=== PATIENT | female | born 1970 | race Caucasian/White ===

== ENCOUNTER 2018-06-22 15:27 | Emergency (ER) | payer BC, SELFPAY ==
[2018-06-22 15:57] VITALS: BP 161/92; PULSE 69; RESP 18; TEMP 37; O2SAT 98
[2018-06-22 16:42] LABS: Add Manual Diff / Slide Review NO; Basophils Percent Auto 0.8 % (0-2); Eosinophils Percent Auto 0.8 % (2-4); Hematocrit 32.5 % (36-46); Hemoglobin 10.4 g/dL (12.0-16.0); Mean Corpuscular HGB Conc 31.9 % (30-36); Mean Corpuscular Volume 84.6 fL (80-100); Monocytes Percent Auto 7.5 % (3-14); Neutrophils Absolute Auto 5000 /uL (3000-5900); Neutrophils Percent Auto 63.9 % (50-75); Platelet Count 239 X10^3/uL (150-400); Red Blood Cell Count 3.84 X10^6/uL (4.0-5.2); Red Cell Distribution Width 15.5 % (11.6-14.8); White Blood Cell Count 7.9 X10^3/uL (4.5-11.0)
[2018-06-22 16:54] LABS: Prothrombin Time 10.9 SECONDS (10.1-12.7)
[2018-06-22 16:56] LABS: PTT Partial Thromboplastin Tim 30 SECONDS (26.4-36.2)
[2018-06-22 16:58] LABS: Alanine Aminotransferase 25 IU/L (9-52); Albumin 4.2 g/dL (3.5-5.0); Albumin Globulin Ratio 1.4 (1.0-2.8); Alkaline Phosphatase 61 U/L (38-126); Aspartate Aminotransferase 23 IU/L (14-36); Bilirubin Total 0.2 mg/dL (0.2-1.3); Blood Urea Nitrogen 14 mg/dL (7-17); Calcium 8.6 mg/dL (8.4-10.2); Carbon Dioxide 29 mmol/L (22-32); Chloride 104 mmol/L (98-107); Creatine Kinase 55 U/L (30-135); Estimated Glomerular Filt Rate > 60.0 mL/min (>60); Glucose 90 mg/dL (70-100); HEMOLYSIS < 15 (0-50); Lipase 165 U/L (23-300); Potassium 4.6 mmol/L (3.4-5.1); Sodium 140 mmol/L (137-145); Total Protein 7.2 g/dL (6.3-8.2)
[2018-06-22 17:10] LABS: Troponin I < 0.012 ng/mL (0.01-0.034)
[2018-06-22 17:29] LABS: TSH w/ Reflex to FT4 0.95 uIU/mL (0.47-4.68)
[2018-06-22 18:45] VITALS: BP 136/82; PULSE 74; RESP 22; O2SAT 100
--- NOTE | 2018-06-22 18:58 | ED_ITS ---
HPI - Chest Pain General Chief Complaint: Chest Pain Stated Complaint: medication changes,elevated BP,headaches Time Seen by Provider: 06/22/18 18:14 Source: patient Mode of arrival: ambulatory Limitations: no limitations History of Present Illness HPI narrative: patient is a 48-year-old female who presents with a variety of complaints. 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 She has been on levothyroxine for number of years. He her TSH 3 weeks ago was 7.0, her dose was increased from 112 mcg to 125 mcg. 2 days later she started feeling palpitations has had a headache her blood pressures been all over the place. She overall does not feel well. She was decreased back to 112 4 days ago. She still does not feel quite right. continues to have headache. No nausea or vomiting weakness or blurry vision. His she has some discomfort in his chest no shortness of breath or fevers. She denies any hair loss weight loss shaking, dizziness lightheadedness. Review of Systems Review of Systems All systems reviewed & are unremarkable except as noted in HPI and below Constitutional Denies chills, Denies fever(s), Reports headache(s), Denies lethargy and Reports weakness Eyes Denies blurry vision and Denies diplopia ENT Ears, Nose, Mouth, and Throat: Reports headache(s) Cardiovascular Denies syncope, Reports palpitations and Denies dyspnea Respiratory Denies dyspnea and Denies wheezing Gastrointestinal Gastrointestinal: Denies abdominal pain, Denies change in bowel habits, Denies diarrhea, Denies nausea and Denies vomiting Musculoskeletal Denies back pain, Denies muscle weakness, Denies numbness and Denies tingling Integumentary/Breasts Denies pruritus, Denies erythema, Denies rash and Denies wounds Neurologic Denies syncope, Reports headache(s), Denies numbness, Denies tingling and Reports weakness Endocrine Reports palpitations Allergic/Immunologic Denies wheezing PFSH Medical History Hypertension (Acute) Hypothyroid (Acute) Renal disease (Acute) Surgical History H/O thyroidectomy (Acute) Exam Initial Vital Signs Initial Vital Signs: Vital Signs Temperature 98.6 F 06/22/18 15:57 Pulse Rate 69 06/22/18 15:57 Respiratory Rate 18 06/22/18 15:57 Blood Pressure 161/92 H 06/22/18 15:57 Pulse Oximetry 98 06/22/18 15:57 GENERAL: Well-appearing, well-nourished and in no acute distress. HEENT: Head atraumatic,EOMI, pupils reactive, face symmetric CARDIOVASCULAR: Regular rate and rhythm without murmurs, rubs or gallops. RESPIRATORY: Breath sounds equal bilaterally, no wheezes rales or rhonchi. ABDOMEN: Soft, nontender. Normoactive bowel sounds all 4 quadrants. No guarding or rebound. EXTREMITIES: Normal range of motion, no clubbing or edema. Neurovascularly intact NEUROLOGICAL: Alert and oriented x4.Normal gait and speech. Cranial nerves II through XII grossly intact. pcmh specialist strength equal bilaterally SKIN: Warm, dry, no laceration, no petechiae, no rashes or lesions. Course Orders Ordered: ED Orders 06/22/18 16:00 EKG-12 Lead Stat 06/22/18 16:19 Complete Blood Count AUTO DIFF Stat Comprehensive Metabolic Panel Stat Lipase Stat Partial Thromboplastin Time Stat Prothrombin Time INR Stat TSH w/ Reflex to FT4 Stat Troponin & CK Cardiac Panel Stat 06/22/18 19:13 CT head/brain wo con Stat Vital Signs - 8 hr 06/22/18 15:57 06/22/18 18:45 06/22/18 19:41 Temperature 98.6 F Pulse Rate 69 74 76 Respiratory Rate 18 22 13 Blood Pressure 161/92 H Blood Pressure [Left Arm] 136/82 144/81 H Pulse Oximetry 98 100 100 MDM - Chest Pain Lab Data Attestation: I reviewed the patient's lab results. Result diagrams: 06/22/18 16:19 06/22/18 16:19 Lab Results 06/22/18 06/22/18 06/22/18 Range/Units 16:19 16:19 16:19 WBC 7.9 (4.5-11.0) X10^3/uL RBC 3.84 L (4.0-5.2) X10^6/uL Hgb 10.4 L (12.0-16.0) g/dL Hct 32.5 L (36-46) % MCV 84.6 (80-100) fL MCH 27.0 (26-34) PG MCHC 31.9 (30-36) % RDW 15.5 H (11.6-14.8) % Plt Count 239 (150-400) X10^3/uL Neut % (Auto) 63.9 (50-75) % Lymph % (Auto) 27.0 (25-40) % [place] % (Auto) 7.5 (3-14) % Eos % (Auto) 0.8 L (2-4) % Baso % (Auto) 0.8 (0-2) % Neut # (Auto) 5000 (9111-5663) /uL PT 10.9 (10.1-12.7) SECONDS INR 1.0 (0.9-1.3) APTT 30 (26.4-36.2) SECONDS Sodium 140 (137-145) mmol/L Potassium 4.6 (3.4-5.1) mmol/L Chloride 104 (98-107) mmol/L Carbon Dioxide 29 (22-32) mmol/L BUN 14 (7-17) mg/dL Creatinine 0.70 (0.52-1.04) mg/dL Estimated GFR > 60.0 (>60) mL/min BUN/Creatinine Ratio 20.0 (6-22) Glucose 90 (70-100) mg/dL Calcium 8.6 (8.4-10.2) mg/dL Total Bilirubin 0.2 (0.2-1.3) mg/dL AST 23 (14-36) IU/L ALT 25 (9-52) IU/L Alkaline Phosphatase 61 (38-126) U/L Total Creatine Kinase 55 (30-135) U/L CK-MB (CK-2) TNP CK-MB (CK-2) Rel Index TNP Troponin I < 0.012 (0.01-0.034) ng/mL Total Protein 7.2 (6.3-8.2) g/dL Albumin 4.2 (3.5-5.0) g/dL Globulin 3.0 (1.7-4.1) g/dL Albumin/Globulin Ratio 1.4 (1.0-2.8) Lipase 165 (23-300) U/L TSH (0.47-4.68) uIU/mL 06/22/18 Range/Units 16:19 WBC (4.5-11.0) X10^3/uL RBC (4.0-5.2) X10^6/uL Hgb (12.0-16.0) g/dL Hct (36-46) % MCV (80-100) fL MCH (26-34) PG MCHC (30-36) % RDW (11.6-14.8) % Plt Count (150-400) X10^3/uL Neut % (Auto) (50-75) % Lymph % (Auto) (25-40) % [place] % (Auto) (3-14) % Eos % (Auto) (2-4) % Baso % (Auto) (0-2) % Neut # (Auto) (4428-3617) /uL PT (10.1-12.7) SECONDS INR (0.9-1.3) APTT (26.4-36.2) SECONDS Sodium (137-145) mmol/L Potassium (3.4-5.1) mmol/L Chloride (98-107) mmol/L Carbon Dioxide (22-32) mmol/L BUN (7-17) mg/dL Creatinine (0.52-1.04) mg/dL Estimated GFR (>60) mL/min BUN/Creatinine Ratio (6-22) Glucose (70-100) mg/dL Calcium (8.4-10.2) mg/dL Total Bilirubin (0.2-1.3) mg/dL AST (14-36) IU/L ALT (9-52) IU/L Alkaline Phosphatase (38-126) U/L Total Creatine Kinase (30-135) U/L CK-MB (CK-2) CK-MB (CK-2) Rel Index Troponin I (0.01-0.034) ng/mL Total Protein (6.3-8.2) g/dL Albumin (3.5-5.0) g/dL Globulin (1.7-4.1) g/dL Albumin/Globulin Ratio (1.0-2.8) Lipase (23-300) U/L TSH 0.95 (0.47-4.68) uIU/mL Urine Dip Bedside Urine Glucose Negative Bedside Urine Bilirubin - Negative Bedside Urine Ketone - Negative Urine Specific [place] 1.025 Bedside Urine pH 6.0 Bedside Urine Protein - Negative Bedside Urine Urobilinogen - Negative Bedside Urine Nitrite - Negative Bedside Urine Leukocytes - Negative Esterase Imaging Data CT scan - head: Radiologist's impression: PROCEDURE: CT HEAD/BRAIN WO CON INDICATIONS: headache on going for 2 weeks TECHNIQUE: Noncontrast 4.5 mm thick angled axial sections acquired from the foramen magnum to the vertex, with coronal and sagittal reformats. For radiation dose reduction, the following was used: automated exposure control, adjustment of mA and/or kV according to patient size. COMPARISON: None. FINDINGS: Image quality: Excellent. CSF spaces: Basal cisterns are patent. No extra-axial fluid collections. Ventricles are normal in size and shape. A 17 mm diameter arachnoid cyst is visualized within the posterior fossa. Brain: No midline shift. No intracranial masses or hemorrhage. [place]-white matter interface is normal. Skull and face: Calvarium and visualized facial bones are intact, without suspicious lesions. Sinuses: Visualized sinuses and mastoids are clear. IMPRESSION: No acute intracranial findings. Dictated by: Rolanda Pierre M.D. on 06/22/2018 at 20:01 ECG Data Attestation: I personally reviewed and interpreted this ECG as follows: Prior ECG tracings: not available for review Interpretation: normal sinus rhythm rate [address] changes [place] interval 122 QRS 90 QTC 412 no PVC MDM Narrative Medical decision making narrative: Patient's TSH is back down to normal after just a few short weeks. I suspect that she is quite sensitive to levothyroxine and the change. Her dosage was decreased just a few days ago. She does not seem to be and thyrotoxicosis thyroid storm. She has an appointment with manager registration alert a week. I discussed all findings with the patient, Education has been performed regarding treatment plan, diagnosis, warning signs and symptoms and all concerns have been addressed. Verbally agree with and understood all of the above. Discharge Plan Departure Patient Disposition: Home Clinical Impression: Hypothyroid Discharge Date/Time: 06/22/18 20:26 Interventions: ED Discharge Assessment Last Done: 06/22/18 20:25 Instructions: DI for Hypothyroidism Activity Restrictions/Additional Instructions: *You have been diagnosed with hypothyroid, arachnoid cyst *What to do: TSH today is 0.95, cyst in bright is unlikely to be causing her headaches but has likely been there for some time. if continuing to cause headaches and problems may be surgically removed however not emergently indicated at this time *Continue to take medications as directed - continue levothyroxine 112 mcg daily as previously recommended *Follow up with your primary care provider in 2-3 days follow-up with her manager registration next week as previously scheduled *Return to ER if you should have worsening headache, heart palpitations, passing out any new, worsening or concerning symptoms
--- NOTE | 2018-06-22 19:13 | DI.CT.S_ITS ---
PROCEDURE: CT HEAD/BRAIN WO CON INDICATIONS: headache on going for 2 weeks TECHNIQUE: Noncontrast 4.5 mm thick angled axial sections acquired from the foramen magnum to the vertex, with coronal and sagittal reformats. For radiation dose reduction, the following was used: automated exposure control, adjustment of mA and/or kV according to patient size. COMPARISON: None. FINDINGS: Image quality: Excellent. CSF spaces: Basal cisterns are patent. No extra-axial fluid collections. Ventricles are normal in size and shape. A 17 mm diameter arachnoid cyst is visualized within the posterior fossa. Brain: No midline shift. No intracranial masses or hemorrhage. [place]-white matter interface is normal. Skull and face: Calvarium and visualized facial bones are intact, without suspicious lesions. Sinuses: Visualized sinuses and mastoids are clear. IMPRESSION: No acute intracranial findings. Dictated by: Rolanda Pierre M.D. on 06/22/2018 at 20:01 Approved by: Rolanda Pierre M.D. on 06/22/2018 at 20:03
[2018-06-22 19:41] VITALS: BP 144/81; PULSE 76; RESP 13; O2SAT 100
[2018-06-22 20:00] VITALS: BP 120/68; PULSE 74; RESP 15; O2SAT 100
--- NOTE | 2018-06-22 20:24 | PC.NURSE ---
hx of thyroidectomy due to recurrent masses on the thyroid. Recently her levothyroxine dose was increased 2 weeks ago. Began having headaches since then. chest pressure started 3 days ago.
== END 2018-06-22 20:26 | disposition home or self-care (01) ==
PROVIDERS: Emergency Medicine; Emergency Provider Emergency Medicine
DX: E03.9 Hypothyroidism, unspecified (principal); R07.89 Other chest pain
CPT/HCPCS: 36415; 70450; 80053; 81003; 82550; 83690; 84443; 84484; 85025; 85610; 85730; 93005; 99283; 99285